=== PATIENT | female | born 1980 | race Caucasian/White ===

== ENCOUNTER 2020-07-28 21:41 | Emergency (ER) | payer OTHER, SELFPAY ==
[2020-07-28 21:42] VITALS: BP 113/66; PULSE 119; RESP 16; TEMP 37.1; O2SAT 96; BMI 23.7
--- NOTE | 2020-07-28 22:26 | RAD_ITS ---
INDICATION: dizziness EXAMINATION/TECHNIQUE: X-RAY - XR Chest 1 View COMPARISON: None. FINDINGS: Questionable subtle airspace opacities in the left lower lobe. The cardiomediastinal silhouette is unremarkable. No pleural effusion or pneumothorax. No acute osseous abnormalities. RAD/Chest 1 View (Portable) IMPRESSION: Questionable subtle airspace opacities in the left lower lobe. Electronically Signed: Anderson Serra MD at 23:26 EDT Tel , Service support ,
--- NOTE | 2020-07-28 22:49 | ED.VIS.GEN ---
History of Present Illness Chief Complaint: Dizziness Informant: Patient Narrative: Patient tested positive for COVID-19 on the 15th of this month. She states she has had mild to moderate symptoms. She notes that she has not had much of an appetite even though she can still taste and smell. She states that she has been having more lightheadedness worse with standing and movement. She wonders if she could be dehydrated. She states her breathing seems normal. She just notes a significant amount of fatigue at home. - Past Medical History (1) COVID-19 Status: Acute Past Medical History - Allergies and Home Meds Allergies/Adverse Reactions: Allergies No Known Allergies Allergy (Verified 07/28/20 22:52) Primary Care Physician: Isabel Willis MD [STAFF PHYSICIAN] - As Needed (as needed for primary care followup) Surgical History: noncontributory Lives: With Family Drugs: None Review of Systems General: Reports: Chills, Fever, Malaise, - - Lightheaded feeling. Denies: Sweats Eyes: Denies: Visual changes - bilaterally, Diplopia ENT: Reports: Rhinorrhea, Sore throat Cardiovascular: Denies: Chest pain, Palpitations Respiratory: Reports: Dyspnea, Cough. Denies: Dyspnea on exertion Gastrointestinal: Reports: Diarrhea. Denies: Abdominal pain, Nausea, Vomiting, Melena, Hematochezia Genitourinary: Denies: Dysuria, Hematuria, Frequency Musculoskeletal: Denies: Back pain, Extremity Pain Skin: Denies: Rash, Wounds Neurological: Reports: Headache. Denies: Weakness, Numbness Physical Exam Vital Signs/Narrative: Vital Signs Temp Pulse Resp BP Pulse Ox 07/28/20 21:42 98.7 F 119 H 16 113/66 96 Inital Vital Signs reviewed: Yes General: Well nourished, Well developed, No Acute Distress Head: Normocephalic, Atraumatic Eyes: Perrl, EOMI ENT: Moist mucous membranes, No rhinorrhea Neck: Supple, Nontender Cardiovascular: Regular rate, Regular rhythm, No murmurs Respiratory: No distress, CTA bilaterally, Chest nontender Abdomen: Soft, Nontender, Nondistended, Normal bowel sounds Back: Nontender, Normal Inspection Extremities: Nontender, No edema Skin: Normal color, No rash Neurological: Alert, Oriented x3, Cranial nerves II-XII grossly intact, Normal Strength, Normal Sensation Psychological: Normal affect, Normal Mood Diagnostic/Tx/Re-eval Laboratory Last Values WBC 4.1 K/mm3 (4.4-11.0) L 07/28/20 22:55 RBC 5.37 M/mm3 (4.2-5.4) 07/28/20 22:55 Hgb 14.6 g/dL (12.0-15.0) 07/28/20 22:55 Hct 44.1 % (37-47) 07/28/20 22:55 MCV 82.1 fL (81-99) 07/28/20 22:55 MCH 27.2 pg (27.0-32.0) 07/28/20 22:55 MCHC 33.1 g/dL (32-36) 07/28/20 22:55 RDW Std Deviation 37.4 fl (35.1-43.9) 07/28/20 22:55 RDW Coeff of Claudia 12.4 % (11.6-14.6) 07/28/20 22:55 Plt Count 133 K/mm3 (150-450) L 07/28/20 22:55 MPV 10.2 fl (6.2-12.0) 07/28/20 22:55 Immature Gran % (Auto) 0.500 % (0.0-0.9) 07/28/20 22:55 Neut % (Auto) 76.2 % (47-70) H 07/28/20 22:55 Lymph % (Auto) 19.5 % (19-41) 07/28/20 22:55 Trinity % (Auto) 3.6 % (0-10) 07/28/20 22:55 Eos % (Auto) 0.0 % (0-5) 07/28/20 22:55 Baso % (Auto) 0.2 % (0-1) 07/28/20 22:55 Absolute Neuts (auto) 3.1 X10^3/uL (2.0-7.7) 07/28/20 22:55 Absolute Lymphs (auto) 0.80 X10^3/uL (0.83-4.51) L 07/28/20 22:55 Nucleated RBC % 0 % (0-5) 07/28/20 22:55 Sodium 137 mmol/L (136-145) 07/28/20 22:55 Potassium 3.7 mmol/L (3.5-5.1) 07/28/20 22:55 Chloride 101 mmol/L (98-107) 07/28/20 22:55 Carbon Dioxide 31.0 mmol/L (21.0-32.0) 07/28/20 22:55 Anion Gap 5 (5-15) 07/28/20 22:55 BUN 10 mg/dL (7-18) 07/28/20 22:55 Creatinine 0.95 mg/dL (0.55-1.02) 07/28/20 22:55 Estim Creat Clear Calc 65.12 ml/min 07/28/20 22:55 Est GFR (MDRD) Af Amer 84 mL/min (>60) 07/28/20 22:55 Est GFR (MDRD) Non-Af 69 mL/min (>60) 07/28/20 22:55 BUN/Creatinine Ratio 10.5 RATIO (10-20) 07/28/20 22:55 Glucose 102 mg/dL (74-106) 07/28/20 22:55 Calcium 9.3 mg/dL (8.5-10.1) 07/28/20 22:55 Total Bilirubin 0.30 mg/dL (0.20-1.00) 07/28/20 22:55 AST 28 U/L (15-37) 07/28/20 22:55 ALT 17 U/L (13-56) 07/28/20 22:55 Alkaline Phosphatase 84 U/L (45-117) 07/28/20 22:55 Total Protein 7.1 g/dL (6.4-8.2) 07/28/20 22:55 Albumin 3.4 g/dL (3.2-5.0) 07/28/20 22:55 Globulin 3.7 g/dL (2.2-4.2) 07/28/20 22:55 Albumin/Globulin Ratio 0.9 RATIO (0.9-2.4) 07/28/20 22:55 Clinical Impression(s) from Imaging Studies Chest X-Ray 07/28/20 22:26 IMPRESSION: Questionable subtle airspace opacities in the left lower lobe. Electronically Signed: Anderson Serra MD at 23:26 EDT Tel , Service support , - Medical Decision Making My impression is single view portable chest x-ray is probable small areas of infiltrate consistent with COVID-19. Basic blood work showed a leukopenia which is not unexpected. Otherwise negative. She received a liter of fluids. I believe treatment at this point is still supportive patient will be discharged home return if worsening or concerns ED Disposition - Plan for ED Patient: Disposition: Home or Assisted Living Diagnosis: COVID-19, Lightheadedness Instructions: Coronavirus Disease 2019 (COVID-19): Caring for Yourself or Others Referrals: Isabel Willis MD [STAFF PHYSICIAN] - As Needed (as needed for primary care followup)
[2020-07-28] MEDS: 0.9% Normal Saline 1,000 ML 1000 ML IV (22:50)
[2020-07-28 22:57] VITALS: BP 106/67; PULSE 83
[2020-07-28 23:00] VITALS: BP 107/74; BP 108/68; PULSE 85; PULSE 99
[2020-07-28 23:00] LABS: Absolute Neutrophil Count 3.1 X10^3/uL (2.0-7.7); Basophil# 0.01 X10^3/uL; Basophil% 0.2 % (0-1); Hematocrit 44.1 % (37-47); Hemoglobin 14.6 g/dL (12.0-15.0); Lymphocyte % 19.5 % (19-41); Mean Corp Hgb Conc 33.1 g/dL (32-36); Mean Corpuscular Hgb 27.2 pg (27.0-32.0); Mean Corpuscular Volume 82.1 fL (81-99); Mean Platelet Vol. 10.2 fl (6.2-12.0); Monocyte# 0.15 X10^3/uL; Monocyte% 3.6 % (0-10); NRBC Flagged by Analyzer 0 % (0-5); Neutrophil # 3.13 X10^3/uL (2.7-7.7); Neutrophil % 76.2 % (47-70); Platelet Count 133 K/mm3 (150-450); RBC Distribution Width CV 12.4 % (11.6-14.6); RBC Distribution Width SD 37.4 fl (35.1-43.9); Red Blood Count 5.37 M/mm3 (4.2-5.4); White Blood Count 4.1 K/mm3 (4.4-11.0)
[2020-07-28 23:14] LABS: ALB/GLOB Ratio 0.9 RATIO (0.9-2.4); AST(SGOT) 28 U/L (15-37); Alanine Aminotransfer ALT/SGPT 17 U/L (13-56); Albumin, Serum 3.4 g/dL (3.2-5.0); Alkaline Phosphatase 84 U/L (45-117); Anion Gap 5 (5-15); BUN 10 mg/dL (7-18); BUN/Creat Ratio 10.5 RATIO (10-20); Calcium,Total 9.3 mg/dL (8.5-10.1); Chloride 101 mmol/L (98-107); Creatinine, Serum 0.95 mg/dL (0.55-1.02); EST Glomerular Filtration Rate 69 mL/min (>60); Est Glom Filt Rate - Afr Amer 84 mL/min (>60); Estimated Creatinine Clearance 65.12 ml/min; Globulin 3.7 g/dL (2.2-4.2); Glucose 102 mg/dL (74-106); Potassium 3.7 mmol/L (3.5-5.1); Protein, Total 7.1 g/dL (6.4-8.2); Sodium Level 137 mmol/L (136-145)
[2020-07-28 23:59] VITALS: BP 121/76; PULSE 86; RESP 16; O2SAT 96; O2SAT 99
== END 2020-07-29 00:11 | disposition home or self-care (01) ==
PROVIDERS: Emergency Provider Emergency Medicine
DX: U07.1 COVID-19 (principal); R42 Dizziness and giddiness; R19.7 Diarrhea, unspecified
CPT/HCPCS: 71045; 80053; 85025; 96360; 99284; J7030; A4216